=== PATIENT | male | born 1960 | race Caucasian/White ===

== ENCOUNTER → 2017-06-29 | Outpatient (CLI) | payer BC ==
--- NOTE | 2017-06-29 10:05 | Diagnostic Imaging Report ---
PROCEDURE:CHEST 2 VIEWS TECHNIQUE:PA and lateral chest totaling 4 radiographs INDICATION:Wheezing; shortness of breath. COMPARISON:None. FINDINGS: The lungs are clear and mildly symmetrically hyperinflated. No pleural effusions. Mild cardiomegaly and pulmonary artery prominence. Intact skeleton. Healed left sixth rib and right seventh rib fractures. CONCLUSION: 1. Mild symmetric hyperinflation suggesting air-trapping from asthma and/or emphysema. 2. Mild cardiomegaly. Mild pulmonary artery prominence suggesting pulmonary hypertension. Dictated by: Arnaldo Oconnell M.D. on 06/29/2017 at 10:05 Electronically approved by: Arnaldo Oconnell M.D. on 06/29/2017 at 10:05
== END ==
LOC: RAD 09:15
PROVIDERS: ATTEND Internal Medicine
DX: R06.2 Wheezing (principal); R06.02 Shortness of breath
CPT/HCPCS: 71046